=== PATIENT | female | born 1990 | race Asian ===

== ENCOUNTER 2016-11-04 18:50 | Emergency (ER) | payer OTHER ==
[~2016-11-04] VITALS: Ht 165.1 cm; Wt 59.0 kg
[2016-11-04] MEDS ORDERED: ALPR2TAB7 PO (19:07)
--- NOTE | 2016-11-04 19:46 | NUR ---
Patient discharged to home in stable conditon. Written and verbal after care instructions given. Patient verbalizes understanding of instructions.
== END 2016-11-04 19:48 | disposition home or self-care (01) ==
LOC: ER 18:54
DX: S32.9XXA Fracture of unspecified parts of lumbosacral spine and pelvis, initial encounter for closed fracture (principal); X50.9XXA Other and unspecified overexertion or strenuous movements or postures, initial encounter; Y93.E1 Activity, personal bathing and showering; Y92.9 Unspecified place or not applicable; Y99.9 Unspecified external cause status
CPT/HCPCS: A4663; Q0162